=== PATIENT | male | born 1960 | race Caucasian/White ===

== ENCOUNTER 2017-09-14 18:08 | Emergency (ER) | payer OTHER ==
[~2017-09-14] VITALS: Ht 172.7 cm; Wt 80.7 kg
[~2017-09-14 18:08] MED LIST: AMITRIPTYLINE H25 M2 PO; AMOXICILLIN 50500 M1 PO; AMOXICILLIN125 MG PO; ARMOUR THYROID15 M1 PO; GEMFIBROZIL 60600 MG PO; GLUCOPHAGE1000 MG PO; GLUCOPHAGE500 MG PO; LANTUSSOLASTAR SQ; LEVEMIR SUBQ; LEVOTHYROXINE0.05 MG PO; LIPITOR40 MG PO; LISINOPRIL10 MG PO; LISINOPRIL20 MG PO; METFORMIN HCL500 MG PO; MILK THISTLE500 MG PO; NEURONTIN 300300 M1 PO; NOVOLOG100 UNIT/1 SUBQ; RANITIDINE HCL150 M1; TRAMADOL 50 MG50 MG PO; ULTRAM 50MG TAB50 MG PO; VICOPROFEN 2001 EAC1 PO; ZANTAC 150MG T150 M1 PO
[2017-09-14] MEDS ORDERED: GEMFIBROZIL 60600 MG PO (18:17)
[2017-09-14] MEDS ORDERED: TRAMADOL 50 MG50 MG PO (18:18)
[2017-09-14] MEDS ORDERED: ACETAMINOPHEN-1 EAC1 PO (19:49)
[2017-09-14] MEDS ORDERED: NAPROSYN500 MG PO (19:49)
[2017-09-14] MEDS ORDERED: ROBAXIN 750 MG750 M1 PO (19:49)
[2017-09-14 20:08] VITALS: BP 141/82
== END 2017-09-14 20:09 | disposition home or self-care (01) ==
LOC: M.ERS 18:08
DX: M54.2 Cervicalgia (principal); M54.5 Low back pain; I10 Essential (primary) hypertension; E78.5 Hyperlipidemia, unspecified; K21.9 Gastro-esophageal reflux disease without esophagitis; G43.909 Migraine, unspecified, not intractable, without status migrainosus; E03.9 Hypothyroidism, unspecified; Z98.890 Other specified postprocedural states; Z88.8 Allergy status to other drugs, medicaments and biological substances; V49.40XA Driver injured in collision with unspecified motor vehicles in traffic accident, initial encounter; Y93.89 Activity, other specified; Y92.89 Other specified places as the place of occurrence of the external cause; Y99.8 Other external cause status

== ENCOUNTER 2020-11-19 21:04 | Observation (INO) | payer MEDICARE ==
[~2020-11-19] VITALS: Ht 172.7 cm; Wt 92.1 kg
[~2020-11-19 21:04] MED LIST changes: +ACETAMINOPHEN-1 EAC1 PO; +NAPROSYN500 MG PO; -NEURONTIN 300300 M1 PO; +NEURONTIN 300M300 M2 PO; +ROBAXIN 750 MG750 M1 PO; +SYNTHROID50 MCG PO
[2020-11-19 21:05] VITALS: BP 153/82
[2020-11-19] MEDS ORDERED: OMEPRAZOLE 20 M20 M1 PO (21:09)
[2020-11-19] MEDS ORDERED: FLOMAX0.4 MG PO (21:09)
[2020-11-19] MEDS ORDERED: LIPITOR 20 MG T20 M1 PO (21:10)
[2020-11-19 21:42] LABS: ABSOLUTE BASOPHILS 0.1 thou/uL (0.0-0.2); ABSOLUTE EOSINOPHILS 0.4 thou/uL (0.0-0.7); ABSOLUTE LYMPHOCYTES 1.9 thou/uL (0.8-5.3); ABSOLUTE MONOCYTES 0.7 thou/uL (0.0-1.2); BASOPHILS 0.9 %; EOSINOPHILS 4.9 %; HEMATOCRIT 39.5 % (42.0-52.0); HEMOGLOBIN 13.4 gm/dL (14.0-18.0); LYMPHOCYTES 23.9 %; MCH 29.8 pg (26.0-34.0); MCHC 33.9 g/dL (28.0-37.0); MCV 87.9 fL (80.0-100.0); MONOCYTES 8.5 %; MPV 7.9 fl. (7.2-11.1); NUCLEATED RBCS 0 /100WBC; PLATELET COUNT* 222 thou/uL (150-400); POLYS 61.8 %; RBC 4.49 mil/uL (4.50-6.00); RDW-CV 13.3 % (10.5-14.5)
[2020-11-19 21:47] LABS: CALCIUM 8.5 mg/dL (8.5-10.1); CREATININE 1.3 mg/dL (0.6-1.3); POTASSIUM 4.3 mmol/L (3.5-5.1)
[2020-11-19 21:49] LABS: PROTIME 10.7 Seconds (9.20-11.50)
[2020-11-19 21:57] LABS: ALBUMIN 3.5 g/dL (3.4-5.0); TOTAL BILIRUBIN 0.7 mg/dL (<0.1-1.0); TOTAL PROTEIN 7.4 g/dL (6.4-8.2)
[2020-11-20 02:21] VITALS: BP 101/70
[2020-11-20 02:50] VITALS: BP 135/77
[2020-11-20] MEDS ORDERED: LANTUS SUBQ (03:17)
[2020-11-20] MEDS ORDERED: APIDRA SUBQ (03:21)
[2020-11-20] MEDS ORDERED: VIAGRA100 MG PO (03:25)
[2020-11-20] MEDS ORDERED: ASA81BEC PO (03:26)
[2020-11-20 05:24] LABS: HEMATOCRIT 36.6 % (42.0-52.0); HEMOGLOBIN 12.4 gm/dL (14.0-18.0); MCH 29.8 pg (26.0-34.0); MCHC 33.9 g/dL (28.0-37.0); MCV 88.1 fL (80.0-100.0); MPV 8.1 fl. (7.2-11.1); RBC 4.15 mil/uL (4.50-6.00); RDW-CV 13.1 % (10.5-14.5); WBC 7.7 thou/uL (4.0-11.0)
[2020-11-20 05:35] LABS: ALBUMIN 3.2 g/dL (3.4-5.0); CALCIUM 8.2 mg/dL (8.5-10.1); CREATININE 1.4 mg/dL (0.6-1.3); POTASSIUM 4.5 mmol/L (3.5-5.1); TOTAL BILIRUBIN 0.6 mg/dL (<0.1-1.0); TOTAL PROTEIN 6.7 g/dL (6.4-8.2)
[2020-11-20 08:00] VITALS: BP 143/86
--- NOTE | 2020-11-20 09:37 | EKG ---
[place] [address] ELECTROCARDIOGRAM REPORT Name: CRIS CHAPA Room: [address]R.#: [id number] Admission: 11/20/20 Attend Phys: Robert Mendoza, Discharge: Date of : 64 Date of Service: 11/19/202119 Report #: [id number] THIS REPORT FOR: //name// [facility] ED Test Date: 2020-11-19 Test Time: 21:20:52 Pat Name: CRIS CHAPA Department: Room: [facility] Gender: M Ship'S Officer: LIANE : 1960 Requested By: Hillary Matias Order Number: [id number] MD: Lazaro Hayes Measurements Intervals [place] Rate: 85 P: 38 UT: 187 QRS: -7 QRSD: 85 T: 48 QT: 376 QTc: 447 Interpretive Statements Sinus rhythm Baseline wander in lead(s) V3 Compared to ECG 02/19/2017 06:55:22 No significant changes Electronically Signed On 11-20-2020 9:37:35 CDT by Lazaro Hayes [email or web address] <ELECTRONICALLY SIGNED> By: Lazaro Hayes MD, FACC 11/20/20 0937 19 19 Lazaro Hayes MD, [facility] /EPI
--- NOTE | 2020-11-20 10:41 | NUR ---
CM SPOKE TO THE PT TO DISCUSS CM ASSESSMENT. PT A&O, AND NORMALLY INDEPENENT WITH ADL'S. PT RESIDES AT HOME WITH SPOUSE AND CHILDREN AND THEY USUALLY PROVIDE SBA WHEN PT IS WALKING UP AND DOWN STAIRS. PT'S FAMILY ALSO DO ALL COOKING, CLEANIND AND DRIVING IN THE HOUSEHOLD. PT USES [facility]ALK[facility] AND [facility] OR MOBILITY. PT HAS 0 HX OF HH OR SNF, BUT IS OPEN TO HH AT D/C. CM WILL REMAIN AVAILABLE TO ASSIST AND FOLLOW NEEDED.
[2020-11-20 12:16] VITALS: BP 143/86
--- NOTE | 2020-11-20 13:15 | NUR ---
RECEIVED REPORT. ASSUMED CARE OF PT AROUND 0730. AM ASSESSMENT AND VITALS COMPLETED CHARTED. MEDS PER EMAR. DOCTORS ROUNDED. DISCHARGE ORDERS RECEIVED. DISCHARGE COMPELTED DOCUMENTED. PT AWARE TO FOLLOW UP CLOSELY WITH HIS PCP. IV AND BAND TIER REMOVED. ALL BELONGINGS GATHERED AND SENT OUT WITH THE PT. PT LEFT UNIT IN WC WITH NURSING STAFF. PT LEFT HOSOPITAL IN CAR WITH FAMILY.
== END 2020-11-20 13:15 | disposition home or self-care (01) ==
LOC: M.ERS 21:04 → M.TBA-ER 11-20 01:18 → M.2W 11-20 01:18
PROVIDERS: Emergency Medicine; ADMIT Internal Medicine; ATTEND Internal Medicine
DX: I95.9 Hypotension, unspecified (principal); E11.9 Type 2 diabetes mellitus without complications; F41.9 Anxiety disorder, unspecified; E86.0 Dehydration; G43.909 Migraine, unspecified, not intractable, without status migrainosus; R53.1 Weakness; I10 Essential (primary) hypertension; E78.5 Hyperlipidemia, unspecified; K21.9 Gastro-esophageal reflux disease without esophagitis; G47.30 Sleep apnea, unspecified; G56.00 Carpal tunnel syndrome, unspecified upper limb; K76.0 Fatty (change of) liver, not elsewhere classified; E03.9 Hypothyroidism, unspecified; Z20.822 Contact with and (suspected) exposure to COVID-19; Z98.890 Other specified postprocedural states

== ENCOUNTER 2021-03-31 14:59 | Observation (INO) | payer MEDICARE ==
[~2021-03-31] VITALS: Ht 172.7 cm; Wt 97.9 kg
[~2021-03-31 14:59] MED LIST changes: +APIDRA SUBQ; +ASA81BEC PO; +FLOMAX0.4 MG PO; +LANTUS SUBQ; +LIPITOR 20 MG T20 M1 PO; +OMEPRAZOLE 20 M20 M1 PO; +VIAGRA100 MG PO
[2021-03-31 15:07] VITALS: BP 177/89
[2021-03-31] MEDS ORDERED: CLARITIN10 M3 PO (15:21)
[2021-03-31] MEDS ORDERED: FLOMAX0.4 MG PO (15:21)
[2021-03-31 15:35] LABS: CALCIUM 8.5 mg/dL (8.5-10.1); POTASSIUM 4.3 mmol/L (3.5-5.1)
[2021-03-31 15:38] LABS: HEMATOCRIT 41.9 % (42.0-52.0); HEMOGLOBIN 14.4 gm/dL (14.0-18.0); MCH 29.7 pg (26.0-34.0); MCHC 34.4 g/dL (28.0-37.0); MCV 86.3 fL (80.0-100.0); MPV 8.2 fl. (7.2-11.1); NUCLEATED RBCS 0 /100WBC; PLATELET COUNT* 214 thou/uL (150-400); RBC 4.85 mil/uL (4.50-6.00); WBC 7.5 thou/uL (4.0-11.0)
[2021-03-31 15:46] LABS: TOTAL BILIRUBIN 0.5 mg/dL (<0.1-1.0); TOTAL PROTEIN 7.9 g/dL (6.4-8.2)
[2021-03-31 16:02] LABS: ABSOLUTE EOSINOPHILS 0.5 thou/uL (0.0-0.7); ABSOLUTE LYMPHOCYTES 1.7 thou/uL (0.8-5.3); ABSOLUTE MONOCYTES 0.4 thou/uL (0.0-1.2)
[2021-03-31 16:03] LABS: PLATELET ESTIMATE ADEQUATE
[2021-03-31 23:28] VITALS: BP 141/79
[2021-04-01] VITALS (7 sets, daily range): BP systolic 120–153; BP diastolic 55–89
--- NOTE | 2021-04-01 12:58 | NUR ---
Admission Assessment Admitted from drove pt to ER Mental Status upon admission Alert & Oriented x 3 Living Arrangements: House Lives with: or they live with patient spouse-Maru dependent children x2 x1 child [employer] Support system: Name Phone number Iris Downey [phone] Can patient return to prior living arrangements? Yes No Activities of daily living: Mostly Independent Bathing/Dressing- assist as needed No longer drives due to DM issues. takes to appt Assistive device: Cane Roller Walker Shower Chair Prior resource use: None No hx HH,ARU, or SNU Pt shared that is sick at home and may need transportation back home. Contacted [facility] [phone] and estimated cost will be $11-15. Notified pt and he will let me know if he can't find a friend to take him home. I will also check in with patient when Discharge order is entered.
--- NOTE | 2021-04-01 15:24 | EKG ---
[place] [address] ELECTROCARDIOGRAM REPORT Name: CRIS CHAPA MARC Room: [address] M.R.#: [id number] Admission: 03/31/21 Attend Phys: Daisha Christine, Discharge: Date of : 64 Date of Service: 03/31/21 1506 Report #: [id number] THIS REPORT FOR: //name// [facility] ED Test Date: 2021-03-31 Test Time: 15:06:54 Pat Name: CRIS CHAPA Department: Room: [facility] Gender: M Media Analyst: CD : 1960 Requested By: Kris Bustillo Order Number: [id number] MD: Sylvester Ksier Measurements Intervals [place] Rate: 98 P: 64 UT: 181 QRS: -10 QRSD: 93 T: 51 QT: 338 QTc: 432 Interpretive Statements Sinus rhythm Compared to ECG 11/19/2020 21:20:52 No significant changes Electronically Signed On 04-01-2021 15:24:31 CDT by Sylvester Kiser [email or web address] <ELECTRONICALLY SIGNED> By: Sylvester Kiser MD, [facility] 04/01/21 1524 1506 1506 Sylvester Kiser MD, [facility] /EPI
--- NOTE | 2021-04-01 15:29 | EKG ---
[place] [address] ELECTROCARDIOGRAM REPORT Name: CRIS CHAPA Room: [address] M.R.#: [id number] Admission: 03/31/21 Attend Phys: Daisha Christine, Discharge: Date of : 64 Date of Service: 03/31/21 175 Report #: [id number] THIS REPORT FOR: //name// [facility] ED Test Date: 2021-03-31 Test Time: 17:51:10 Pat Name: CRIS CHAPA Department: Room: [facility] Gender: M Software Developer Mid Level: : 1960 Requested By: Kris Bustillo Order Number: [id number] MD: Sylvester Kiser Measurements Intervals [place] Rate: 90 P: 57 ID: [id number] QRS: -11 QRSD: 87 T: 43 QT: 360 QTc: 441 Interpretive Statements Sinus rhythm Inferior infarct, old Baseline wander in lead(s) V1,V2 Compared to ECG 03/31/2021 15:06:54 Old Myocardial infarct finding still suggested Electronically Signed On 04-01-2021 15:28:56 CDT by Sylvester Kiser [email or web address] <ELECTRONICALLY SIGNED> By: Sylvester Kiser MD, FAC 04/01/21 1528 1751 1751 Sylvester Kiser MD, FAC /EPI
--- NOTE | 2021-04-01 16:39 | 2DMMODE ---
[place] [address] 2 D/M-MODE ECHOCARDIOGRAM Name: CRIS CHAPA Room: [address] M.R.#: [id number] Admission: 03/31/21 Attend Phys: Daisha Christine, Discharge: Date of : 64 Date of Service: 04/01/21 1639 Report #: [id number] THIS REPORT FOR: cc: STARLA AYERS JENNIFER A. DO Liston, Michael J. MD [facility] ~ APPROVED REPORT Study performed: 04/01/2021 15:40:06 EXAM: Comprehensive 2D, Doppler, and color-flow Echocardiogram Patient Location: In-Patient Room #: er Status: routine BSA: 2.00 HR: 102 bpm BP: 130/70 mmHg Rhythm: NSR Other Information Study Quality: Good Indications Dyspnea 2D Dimensions IVSd: 11.01 (7-11mm) LVOT Diam: 21.31 (18-24mm) LVDd: 46.84 mm PWd: 11.65 (7-11mm) Ascending Ao: 30.29 (22-36mm) LVDs: 29.07 (25-40mm) Aortic Root: 34.00 mm Volumes Left Atrial Volume (Systole) LA ESV Index: 24.70 mL/m2 Aortic Valve AoV Peak Otoniel.: 1.45 m/s AO Peak Gr.: 8.46 mmHg LVOT Max P.55 mmHg AO Mean Gr.: 4.95 mmHg LVOT Mean P.79 mmHg LVOT Max V: 1.18 m/s AO V2 VTI: 25.81 cm LVOT Mean V: 0.77 m/s NELSON (VTI): 2.98 cm2 LVOT V1 VTI: 21.57 [place] [address] 2 D/M-MODE ECHOCARDIOGRAM Name: CRIS CHAPA Room: [address]#: [id number] Admission: 03/31/21 Attend Phys: Daisha Christine, Discharge: Date of : 64 Date of Service: 04/01/21 1639 Report #: [id number] Mitral Valve E/A Ratio: 0.77 MV Decel. Time: 164.67 ms MV E Max Otoniel.: 0.77 m/s MV PHT: 47.75 ms MVA (PHT): 4.61 cm2 TDI E/Medial E': 7.00 Medial E' Otoniel.: 0.11 m/s Pulmonary Valve PV Peak Otoniel.: 2.02 m/s PV Peak Gr.: 16.40 mmHg Tricuspid Valve RAP Estimate: 5.00 mmHg TR Peak Gr.: 29.98 mmHg RVSP: 35.00 mmHg PA Pressure: 35.00 mmHg Left Ventricle The left ventricle is normal size. There is normal LV segmental wall motion. There is normal left ventricular wall thickness. Left ventricular systolic function is normal. LVEF is 60-65%. Grade I - abnormal relaxation pattern. Right Ventricle The right ventricle is normal size. The right ventricular systolic function is normal. Atria The left atrium size is normal. The right atrium size is normal. Aortic Valve Mild aortic valve sclerosis. No aortic regurgitation is present. There is no aortic valvular stenosis. Mitral Valve There is mitral annular calcification. There is no mitral valve regurgitation noted. No evidence of mitral valve stenosis. Tricuspid Valve The tricuspid valve is normal in structure. Trace tricuspid regurgitation. Mild pulmonary hypertension. The RVSP is 35-[place] [address] 2 D/M-MODE ECHOCARDIOGRAM Name: CRIS CHAPA Room: [address]#: [id number] Admission: 03/31/21 Attend Phys: Daisha Christine, Discharge: Date of : 64 Date of Service: 04/01/21 1639 Report #: [id number] Pulmonic Valve The pulmonary valve is normal in structure. There is no pulmonic valvular regurgitation. Great Vessels The aortic root is normal in size. IVC is normal in size and collapses >50% with inspiration. Pericardium There is no pericardial effusion. <Conclusion> The left ventricle is normal size. There is normal left ventricular wall thickness. Left ventricular systolic function is normal. LVEF is 60-65%. Grade I - abnormal relaxation pattern. Trace tricuspid regurgitation. Mild pulmonary hypertension. The RVSP is 35-40 mmHg. IVC is normal in size and collapses >50% with inspiration. <ELECTRONICALLY SIGNED> By: Maldonado Granado MD, FACC 04/01/21 1639 1639 1639 Maldonado Granado MD, FACC /INF
--- NOTE | 2021-04-01 18:49 | NUR ---
PATIENT ARRIVED TO UNIT AT APPROX. 1635. PATIENT IS A&OX4, PLEASANT AND COOPERATIVE WITH CARES. DENIES PAIN/N/V AND IS CURRENTLY SITTING UP IN BED EATING DINNER AND WATCHING TV. CALL LIGHT AND FREQUENTLY USED ITEMS WITHIN REACH.
[2021-04-02] VITALS (7 sets, daily range): BP systolic 134–154; BP diastolic 73–86
[2021-04-02 04:44] LABS: CHOLESTEROL 152 mg/dL (<200); HDL CHOLESTEROL 32 mg/dL (>40); LDL CHOLESTEROL 73 mg/dL (<100); TC:HDL 4.8 Ratio (Not establshd); TRIGLYCERIDE 235 mg/dL (<150); VLDL 47 mg/dL (<40)
[2021-04-02 04:49] LABS: BE 1.8 mmol/L (-2 to +3); PCO2 VENOUS 46.3 mmHg (41.0-51.0)
[2021-04-02 05:28] LABS: SERUM ASSESSMENT CLEAR
--- NOTE | 2021-04-02 06:30 | NUR ---
ASSUMED PT CARE AT 1930. NURSING ASSESSMENT COMPLETED, PT VOICED NO CONCERNS THIS SHIFT. SR ON SHEET CUTTER.HIGH FALL PRECAUTIONS IN PLACE. CALL LIGHT WITHIN REACH.
--- NOTE | 2021-04-02 13:54 | NUR ---
Pt to dc to home today post stress test if negative. No needs.
--- NOTE | 2021-04-02 17:26 | CARDNUC ---
[place] [address] CARDIAC NUCLEAR IMAGING REPORT Name: CRIS CHAPA Room: [address] M.R.#: [id number] Admission: 03/31/21 Attend Phys: Daisha Christine, Discharge: Date of : 64 Date of Service: 04/02/21 1726 Report #: [id number] THIS REPORT FOR: cc: STARLA AYERS JENNIFER A. DO Liston, Michael J. MD [facility] ~ APPROVED REPORT Imaging Protocol: Stress Tc-99m/Rest Tc-99m 1 day Study performed: 04/02/2021 11:26:33 Indication: Chest pain Patient Location: In-Patient Room #: 206 Stress Nurse: Allison Johnson RN Ht: 5 ft 8 in Wt: 190 lbs BSA: 2.00 m2 BMI: 28.88 Medical History Medical History: Chest pain, Gerd, Hypothyroidism, NICOL/CPAP, Steatohepatitis, Liver pain, partial colon removal r/t diverticulosis, foot/leg/hand neuropathy, overall body pain, orthostatic hypotension, DM II/insulin, HTN, HLD, tachycardia. Medications: ASA 81 mg. Allergies: Influenza vaccine, chicken derived. Cardiac Risk Factors: Age, Diabetes (insulin), HTN, Hyperlipidemia. Previous Cardiac Procedures: None Pretest Chest Pain Characteristics: No chest pain Exercise History: Sedentary Physical Disabilities: Foot/leg/hand neuropathy, overall body pain, unable to stand and walk unassisted, tachycardia. Meds Held (24 hrs): None Resting Data Rest SPECT myocardial perfusion imaging was performed in supine position 30 minutes following the intravenous injection of 12.0 mCi of Tc-99m Sestamibi. Time of rest injection: 10:00 The images were gated to evaluate regional wall motion and calculate left ventricular ejection fraction. Administration Route: IV Administration Site: [place] [address] CARDIAC NUCLEAR IMAGING REPORT Name: CRIS CHAPA Room: [address] M.R.#: [id number] Admission: 03/31/21 Attend Phys: Daisha Christine, Discharge: Date of : 64 Date of Service: 04/02/21 1726 Report #: [id number] Pharmacologic Stress Pharmacologic stress test was performed by injecting Regadenoson 0.4 mg IV push over 10-15 seconds immediately followed by the intravenous injection of 27.5 mCi of Tc-99m Sestamibi. Time of stress injection: 12:00 Administration Route: IV Administration Site: Right Heart Rate at time of stress injection: 108 bpm. Gated Stress SPECT was performed 120 minutes after stress injection. The images were gated to evaluate regional wall motion and calculate left ventricular ejection fraction. Prone imaging was performed. Stress Test Details Stress Test: Pharmacologic stress testing performed using 0.4 mg of regadenoson per 5 mL given IV over 10 seconds. Reason for pharmacologic stress test: Foot/leg/hand neuropathy, overall body pain, unable to stand and walk unassisted.. 60 mg caffeine given for dizziness. HR Max Heart Rate (APMHR): 161 bpm Resting HR: 102 bpm Target HR (85% APMHR): 136 bpm Max HR Achieved: 108 bpm % of APMHR: 67 Recovery HR: 104 bpm BP Resting BP: 146/83 mmHg Max BP: 102/64 mmHg Recovery BP: 124/71 mmHg ECG Resting ECG: Sinus Tachycardia Stress ECG: Sinus Tachycardia ST Change: None Arrhythmia: None Recovery ECG: Sinus Tachycardia Recovery ST Change: None Recovery Arrhythmia: None Clinical Reason for Termination: Completed protocol Stress Symptoms: lightheadedness. Exercise duration: 00 min 00 sec Exercise capacity: 1.00 METs Patient tolerated Lexiscan infusion without [place] [address] CARDIAC NUCLEAR IMAGING REPORT Name: CRIS CHAPA Room: [address] M.R.#: [id number] Admission: 03/31/21 Attend Phys: Daisha Christine, Discharge: Date of : 64 Date of Service: 04/02/21 1726 Report #: [id number] symptoms. Nurse Comments Patient tolerated test. Patient stable and stated he felt better when escorted to telemetry. Stress ECG Conclusion The baseline twelve-lead EKG shows sinus rhythm without significant ST segment or T wave abnormality. EKGs obtained during and post Lexiscan infusion showed continued sinus rhythm with no significant ST segment or T wave changes when compared to baseline. There were no stress-induced arrhythmias. Study Quality Study: Good Artifact: Mild Diaphragmatic artifact Study Data At rest, the left ventricular ejection fraction was 68%.. Post stress, the left ventricular ejection was 64%.. TID = 1.29. Perfusion Perfusion images obtained in the supine position at rest and post Lexiscan stress show photopenia of the inferior wall that resolves with post-rest prone imaging suggesting diaphragmatic attenuation artifact. No other significant fixed or reversible defects are identified. Wall Motion Normal left ventricular wall motion. Nuclear Conclusion ECG Findings: negative for ischemia Clinical Findings: negative for ischemia Nuclear Findings: negative for ischemia Exercise Capacity: not assessed Left Ventricular Function: normal Risk Study: low Perfusion study show no defect to suggest infarct or ischemia. Left ventricular systolic function is normal on gated studies. This is a low risk study. <Conclusion> The baseline twelve-lead EKG shows sinus rhythm without significant ST segment or T wave abnormality. [place] [address] CARDIAC NUCLEAR IMAGING REPORT Name: CRIS CHAPA Room: [address]#: [id number] Admission: 03/31/21 Attend Phys: Daisha Christine, Discharge: Date of : 64 Date of Service: 04/02/21 1726 Report #: [id number] Lexiscan infusion showed continued sinus rhythm with no significant ST segment or T wave changes when compared to baseline. There were no stress-induced arrhythmias. <ELECTRONICALLY SIGNED> By: Maldonado Granado MD, FACC 04/02/211725 25 25 Maldonado Granado MD, FACC /INF
--- NOTE | 2021-04-02 18:49 | NUR ---
PATIENT GIVEN DISCHARGE INSTRUCTIONS. IV REMOVED. PATIENT DENIES PAIN/QUESTIONS/CONCERNS PRIOR TO DISCHARGE. PATIENT CURRENTLY IN ROOM WAITING FOR A RIDE HOME AND WILL NOTIFY STAFF WHEN HIS RIDE IS HERE.
[2021-04-03 02:06] LABS: GLYCOHEMOGLOBIN (HGB A1C) 9.1 % (4.8-5.6)
--- NOTE | 2021-04-03 10:07 | CON ---
[address] [address] CONSULTATION Name: CRIS CHAPA Room: [address] Karina Valdes#: [id number] Admission: 03/31/21 Attend Phys: Daisha Christine MD Discharge: 04/02/21 Date of : 64 Report #: [id number] THIS REPORT FOR: cc: STARLA ALVARENGA,Maldonado Sosa MD [facility] ~ cc: Starla Alvarenga DATE OF CONSULTATION: 04/01/2021 CARDIOLOGY CONSULTATION INDICATION: Chest pain. HISTORY OF PRESENT ILLNESS: The patient is a very pleasant 61-year-old gentleman with no prior history of coronary artery disease. Risk factors include labile hypertension, hypertriglyceridemia, and type 2 diabetes mellitus. The patient presented to the Emergency Room yesterday morning with focal left sternal chest discomfort described as a dull discomfort that felt like it was mostly on the surface somewhat exacerbated with movement, but not deep breath. The pain did not radiate anywhere. There was no associated diaphoresis. He denied any associated nausea or vomiting. Pain was not associated with food intake. There was no exacerbating or relieving factors. The pain persisted for several hours and then resolved spontaneously. An EKG during this time shows sinus rhythm with no acute ST segment abnormalities. The rate was normal. Rhythm sinus. There were Q-waves inferiorly suggestive possibly of an old inferior wall infarct. No other abnormalities detected. His troponins have been all less than 0.06. At the time of interview, he is pain free. PAST MEDICAL HISTORY: 1. Diabetes, insulin requiring. 2. Hypertriglyceridemia. 3. Diabetic neuropathy. 4. Nonalcoholic steatohepatitis. 5. Orthostatic hypotension. 6. Labile hypertension trending towards orthostasis. 7. History of migraine headaches. 8. GERD. 9. Partial colectomy for diverticulitis in 2009. 10. Right knee arthroscopy. 11. Hemorrhoidectomy x 2. 12. Hypothyroidism. 13. Obstructive sleep apnea [place] [address] CONSULTATION Name: CRIS CHAPA [address] [id number] Admission: 03/31/21 Attend Phys: Daisha Christine MD Discharge: 04/02/21 Date of : 64 Report #: [id number] SOCIAL HISTORY: The patient is a lifelong nonsmoker. He does not drink alcohol. FAMILY HISTORY: Both his maternal grandparents had congestive heart failure. There was no history of coronary artery disease in primary relatives. HOME MEDICATIONS: Amitriptyline 25 mg at bedtime p.r.n., aspirin 81 mg p.o. daily, Neurontin 300 mg p.o. t.i.d., Lantus 20 units subQ daily, Apidra 20 units subQ t.i.d., levothyroxine 50 mcg daily, loratadine 10 mg daily, omeprazole 20 mg daily, Flomax 0.4 mg daily, tramadol 50 mg t.i.d. ALLERGIES: [employer]. REVIEW OF SYSTEMS: A 14-point review of systems was positive for occasional erectile dysfunction, chest tightness as outlined above, dyspnea on exertion, heart murmur, type 2 diabetes mellitus, insulin requiring, hypothyroidism, allergies as outlined above, arthritis, otherwise 14-point review of system was negative. PHYSICAL EXAMINATION: VITAL SIGNS: Stable. Blood pressure 138/72, pulse is 98 and regular. GENERAL: This is a pleasant gentleman who is in no distress. Mood and affect appropriate. HEENT: Normocephalic, atraumatic. Extraocular muscles intact. Mucous membranes are moist. NECK: Shows no jugular venous distention. CHEST: Reveals clear lung corcoran without wheezes or rales. CARDIAC: Reveals a regular rhythm with a grade 1/6 systolic murmur heard at the left and right upper sternal border. I do not appreciate a gallop. ABDOMEN: Reveals normal bowel sounds. The abdomen is soft, nontender. EXTREMITIES: Shows no edema. Peripheral pulses are 2+ and easily palpable. SKIN: Dry. LABORATORY DATA: Reviewed. White blood cell count 7.5, hemoglobin 14.4, platelet count 214,000. Electrolytes are within normal limits. BUN 17, creatinine 1.0, serum glucose 144. LFTs are within normal limits. Troponins as outlined above. Overall, less than 0.06. A 12-lead EKG shows sinus rhythm with inferior Q-waves suggestive of possible prior inferior wall infarct. IMPRESSION AND RECOMMENDATIONS: 1. Atypical chest pain in patient with risk factors for coronary disease including dyslipidemia, diabetes and labile hypertension. We will proceed with [address] [address] CONSULTATION Name: CRIS CHAPA Room: [address] Karina Valdes#: [id number] Admission: 03/31/21 Attend Phys: Daisha Christine MD Discharge: 04/02/21 Date of : 64 Report #: [id number] noninvasive stress testing at this time to further evaluate. Echocardiogram today showed preserved LV systolic function with grade 1 diastolic dysfunction. 2. Diabetes treatment per hospitalist. 3. Hypertension, presently labile. We will follow and make adjustments as needed. 4. Dyslipidemia. Fasting lipid profile pending. 5. Hypothyroidism, on replacement therapy. 6. Cardiac murmur. Echocardiogram does not show any significant valvular heart disease. <ELECTRONICALLY SIGNED> By: Maldonado Granado MD, FACC 04/03/21 1007 1632 [id number] Granado MD, FACC /nt
== END 2021-04-02 19:40 | disposition home or self-care (01) ==
LOC: M.ERS 14:59 → M.TBA-ER 18:08 → M.2W 04-01 16:35
PROVIDERS: Emergency Medicine Emergency Medical Services; Internal Medicine; Internal Medicine Cardiovascular Disease; ADMIT Internal Medicine; ATTEND Internal Medicine
DX: R07.89 Other chest pain (principal); Z20.822 Contact with and (suspected) exposure to COVID-19; I10 Essential (primary) hypertension; G43.909 Migraine, unspecified, not intractable, without status migrainosus; R53.83 Other fatigue; K75.81 Nonalcoholic steatohepatitis (NASH); G47.33 Obstructive sleep apnea (adult) (pediatric); E11.40 Type 2 diabetes mellitus with diabetic neuropathy, unspecified; G93.40 Encephalopathy, unspecified; Z91.018 Allergy to other foods; Z88.7 Allergy status to serum and vaccine